=== PATIENT | female | born 1970 | race Caucasian/White ===

== ENCOUNTER 2022-09-24 06:30 | Day surgery (SDC) | payer OTHER, SELFPAY ==
[2022-09-19 16:17] VITALS: BMI 31.0
--- NOTE | 2022-09-21 08:04 | MHC.SHP ---
Pre-Procedural Eval Section A Date of Service: 09/21/22 The patient is an INPATIENT: No Changes since office visit: No Cold of Flu in the past 2 weeks, No New Medical Problems, No Changes in Medication and No Patient answered all questions The History & Physical has been completed within 30 days and I have reviewed it.: Yes Section B Chief Complaint: Age-related nuclear cataract, left eye Allergies: Allergies Allergy/AdvReac Type Severity Reaction Status Date / Time nitrofurantoin Allergy Severe Hives, rash Verified 09/19/22 16:16 [From Macrobid] Plan Diagnosis/Plan: Unchanged I have reviewed the history and physical and performed a pertinent physical examination on my patient. No changes have occurred unless specified. Time Spent With Patient Time: Total time managing care of this patient today ____ minutes.
--- NOTE | 2022-09-21 09:27 | HO.ANESPROP2 ---
Documented by User: Veronica Piper NP 09/21/22 09:28 HPI - Anesthesia Eval Consult details Narrative: 52yo F for Left Cataract Multifocal with IOL Insertion PCP cleared No previous cataract PMFSH Past Medical History Medical History Bilateral cataracts AMBER (generalized anxiety disorder) GERD (gastroesophageal reflux disease) Hearing loss Hypercholesteremia Insomnia PONV (postoperative nausea and vomiting) Renal calculi Surgical History Surgical History History of esophagogastroduodenoscopy (EGD) Hx of appendectomy Hx of colonoscopy Hx of cystoscopy Hx of ovarian cystectomy Social History Social History Household Members: Family Housing: House Are you a primary home health care provider to a significant other at home: No Do you presently have visiting nurse or other home services: No Patient Tobacco Use Status: Former Tobacco user Quit Date: 2013 Tobacco use type: Cigarette Use of substances other than those prescribed or required for medical reasons: No Have you been hit, kicked, punched, or otherwise hurt by someone within the past year? If so, by whom?: No Are you DNR?: No Advance Directives: No Advance Directives Information Provided: Yes Advance Directives on File: No Meds Allergies Allergy/AdvReac Type Severity Reaction Status Date / Time nitrofurantoin Allergy Severe Hives, rash Verified 09/24/22 07:03 [From Macrobid] Home Medications Medication Instructions Recorded Confirmed Last Taken Type fluoxetine 40 mg capsule 40 mg PO DAILY 09/19/22 09/19/22 Unknown History omeprazole 40 mg capsule,delayed 40 mg PO QAM 09/19/22 09/19/22 Unknown History release simvastatin 20 mg tablet 20 mg PO BEDTIME 09/19/22 09/19/22 Unknown History Exam Exam Date and Time: September 21, 2022926 Height,Weight and Vital Signs: Height 5 ft 4.96 in Weight 84.368 kg Assessment and Plan Assessment Anesthesia Assessment: Chart Reviewed Documented by User: Cydney Perry MD 09/24/22 08:58 PMF Past Medical History Medical History Bilateral cataracts AMBER (generalized anxiety disorder) GERD (gastroesophageal reflux disease) Hearing loss Hypercholesteremia Insomnia PONV (postoperative nausea and vomiting) Renal calculi Surgical History Surgical History History of esophagogastroduodenoscopy (EGD) Hx of appendectomy Hx of colonoscopy Hx of cystoscopy Hx of ovarian cystectomy History of Problems with Anesthesia: No Social History Social History Household Members: Family Housing: House Are you a primary home health care provider to a significant other at home: No Do you presently have visiting nurse or other home services: No Patient Tobacco Use Status: Former Tobacco user Quit Date: 2013 Tobacco use type: Cigarette Use of substances other than those prescribed or required for medical reasons: No Have you been hit, kicked, punched, or otherwise hurt by someone within the past year? If so, by whom?: No Are you DNR?: No Advance Directives: No Advance Directives Information Provided: Yes Advance Directives on File: No Meds Allergies Allergy/AdvReac Type Severity Reaction Status Date / Time nitrofurantoin Allergy Severe Hives, rash Verified 09/24/22 07:03 [From Macrobid] Home Medications Medication Instructions Recorded Confirmed Last Taken Type fluoxetine 40 mg capsule 40 mg PO DAILY 09/19/22 09/19/22 Unknown History omeprazole 40 mg capsule,delayed 40 mg PO QAM 09/19/22 09/19/22 Unknown History release simvastatin 20 mg tablet 20 mg PO BEDTIME 09/19/22 09/19/22 Unknown History Exam Airway Mallampati Class: II TM Dist: >3cm Neck ROM: Full Loose/Missing/Broken Teeth: No Heart: RRR Lungs: CTA Assessment and Plan Assessment Anesthesia Assessment: Anesthesia Plan Discussed Final Anesthetic Review History of Problems with Anesthesia: No NPO: Yes ASA Class: II Final Preanesthetic Review: Meds/Allgs Chart Reviewed, Consent Obtained/Reviewed and Anes Risks/Benef Reviewed Patient Risk: Low Procedure Risk: Low Anesthetic Plan Anesthetic Plan: MAC: Disposition: Standard PACU
[2022-09-24 07:36] VITALS: BP 122/85; PULSE 72; RESP 15; TEMP 37.1; O2SAT 98
[2022-09-24] MEDS: Tetracaine HCl/PF 0.5% Oph Sol 4 ML DROPS 1 DROP EYE-LEFT (07:38)
[2022-09-24] MEDS: Cyclopentolate 1 % Ophth Sol 2 ML DRPBTL 1 DROP EYE-LEFT ×3 (07:40→07:53)
[2022-09-24] MEDS: Tropicamide 1 % Ophth Sol 3 ML BTL 1 DROP EYE-LEFT ×3 (07:42→07:54)
[2022-09-24] MEDS: Ketorolac Tromethamine 0.5% Op 5 ML DROPS 1 DROP EYE-LEFT ×3 (07:43→07:55)
[2022-09-24] MEDS: Phenylephrine HCL 2.5% Oph SoL 2 ML BOTTLE 1 DROP EYE-LEFT ×3 (07:45→07:56)
[2022-09-24] MEDS: Lactated Ringers 500 ML 50 ML IV (07:51)
--- NOTE | 2022-09-24 09:58 | HO.PNOPHT ---
Ophthalmology Procedure Procedure Date of Service: 09/24/22 Ophthalmology Viscoelastic: Healon Duet Dual Pack Pro Ophthalmology Lenses: TECNIS ZXR00 (13.5) Procedure Notes: PREOPERATIVE DIAGNOSIS: Decreased visual acuity left eye secondary to cataract POSTOPERATIVE DIAGNOSIS: Same PROCEDURE: Left cataract extraction with multifocal intraocular lens insertion SURGEON: Solitario Ly M.D. ANESTHESIA: Topical/MAC ESTIMATED BLOOD LOSS: None COMPLICATIONS: None After obtaining informed consent, the patient was brought to the operation room suite and placed in the supine position. After adequate sedation per anesthesia, topical drops of Tetracaine were given to the left eye. The eye was then prepped and draped in the usual sterile fashion. The operating room microscope was then positioned over the operative eye and a lid speculum placed. A paracentesis was created. Viscoelastic was then instilled into the anterior chamber. A three plane incision was then created temporally, utilizing a 2.85 mm keratome. Capsulotomy forceps were then utilized to create a circular tear capsulotomy. Hydrodissection and hydrodelineation were carried out until adequate mobilization of the nucleus occurred. Phacoemulsification was then utilized to remove the dense central nucleus followed by removal of the cortical material utilizing the automated aspiration irrigation unit. Viscoelastic was instilled into the posterior capsular bag followed by placement of a multifocal posterior chamber intraocular lens without difficulty. The residual Viscoelastic was then removed utilizing the automated IA machine. The wound was check and found to be watertight. The patient tolerated the procedure well and the lid speculum was removed. Intracameral injection of Vigamox 0.1 mL followed by a subtenon injection of Kenalog-40 0.2 mL were administered. The patient will be seen in the a.m.
[2022-09-24 10:24] VITALS: BP 139/68; PULSE 70; RESP 20; TEMP 36.6; O2SAT 94
== END 2022-09-24 10:37 | disposition home or self-care (01) ==
PROVIDERS: PCP Internal Medicine; Visit Provider Ophthalmology
PROC: (CPT 66984; principal; 2022-09-24 09:50)
DX: H25.12 Age-related nuclear cataract, left eye (principal); H54.7 Unspecified visual loss; H35.3131 Nonexudative age-related macular degeneration, bilateral, early dry stage; H18.413 Arcus senilis, bilateral; E78.00 Pure hypercholesterolemia, unspecified; Z97.3 Presence of spectacles and contact lenses; Z79.899 Other long term (current) drug therapy; Z88.1 Allergy status to other antibiotic agents; Z87.891 Personal history of nicotine dependence
CPT/HCPCS: 66984; J2250; J3010; J3301; V2788

== ENCOUNTER → 2022-10-15 06:31 | Day surgery (SDC) | payer OTHER, SELFPAY ==
[2022-09-19 16:19] VITALS: BMI 30.9
--- NOTE | 2022-10-12 07:50 | MHC.SHP ---
Pre-Procedural Eval Section A Date of Service: 10/12/22 The patient is an INPATIENT: No Changes since office visit: No Cold of Flu in the past 2 weeks, No New Medical Problems, No Changes in Medication and No Patient answered all questions The History & Physical has been completed within 30 days and I have reviewed it.: Yes Section B Chief Complaint: Age-related nuclear cataract, right eye Allergies: Allergies Allergy/AdvReac Type Severity Reaction Status Date / Time nitrofurantoin Allergy Severe Hives, rash Verified 09/24/22 07:03 [From Macrobid] Plan Diagnosis/Plan: Unchanged I have reviewed the history and physical and performed a pertinent physical examination on my patient. No changes have occurred unless specified. Time Spent With Patient Time: Total time managing care of this patient today ____ minutes.
--- NOTE | 2022-10-12 09:36 | P.CONAN_ITS ---
Documented by User: Veronica Piper NP 10/12/22 09:37 HPI - Anesthesia Eval Consult details Narrative: 52yo F for Right Cataract Extraction IOL Insertion PCP cleared Left eye 09/24/22 with TIVA: Fent 50 Midaz 3 PMFSH Past Medical History Medical History Bilateral cataracts AMBER (generalized anxiety disorder) GERD (gastroesophageal reflux disease) Hearing loss Hypercholesteremia Insomnia PONV (postoperative nausea and vomiting) Renal calculi Surgical History Surgical History History of esophagogastroduodenoscopy (EGD) Hx of appendectomy Hx of colonoscopy Hx of cystoscopy Hx of ovarian cystectomy History of Problems with Anesthesia: No Social History Social History Household Members: Family Housing: House Are you a primary acute care physical therapist to a significant other at home: No Do you presently have visiting nurse or other home services: No Patient Tobacco Use Status: Former Tobacco user Quit Date: 2013 Tobacco use type: Cigarette Use of substances other than those prescribed or required for medical reasons: No Have you been hit, kicked, punched, or otherwise hurt by someone within the past year? If so, by whom?: No Are you DNR?: No Advance Directives: No Advance Directives Information Provided: Yes Advance Directives on File: No Recently lost weight without trying: No Nutrition Risks: No Nutritional Risk FDLMP: 2020 Meds Allergies Allergy/AdvReac Type Severity Reaction Status Date / Time nitrofurantoin Allergy Severe Hives, rash Verified 09/24/22 07:03 [From Macrobid] Home Medications Medication Instructions Recorded Confirmed Last Taken Type fluoxetine 40 mg capsule 40 mg PO DAILY 09/19/22 10/15/22 Unknown History omeprazole 40 mg capsule,delayed 40 mg PO QAM 09/19/22 10/15/22 Unknown History release simvastatin 20 mg tablet 20 mg PO BEDTIME 09/19/22 10/15/22 Unknown History Exam Exam Date and Time: October 12, 2022 0936 Height,Weight and Vital Signs: Height 5 ft 5 in Weight 84.368 kg Assessment and Plan Assessment Anesthesia Assessment: Chart Reviewed Final Anesthetic Review History of Problems with Anesthesia: No Documented by User: Cydney Perry MD 10/15/22 08:35 PMFSH Past Medical History Medical History Bilateral cataracts AMBER (generalized anxiety disorder) GERD (gastroesophageal reflux disease) Hearing loss Hypercholesteremia Insomnia PONV (postoperative nausea and vomiting) Renal calculi Surgical History Surgical History History of esophagogastroduodenoscopy (EGD) Hx of appendectomy Hx of colonoscopy Hx of cystoscopy Hx of ovarian cystectomy Social History Social History Household Members: Family Housing: House Are you a primary acute care physical therapist to a significant other at home: No Do you presently have visiting nurse or other home services: No Patient Tobacco Use Status: Former Tobacco user Quit Date: 2013 Tobacco use type: Cigarette Use of substances other than those prescribed or required for medical reasons: No Have you been hit, kicked, punched, or otherwise hurt by someone within the past year? If so, by whom?: No Are you DNR?: No Advance Directives: No Advance Directives Information Provided: Yes Advance Directives on File: No Recently lost weight without trying: No Nutrition Risks: No Nutritional Risk FDLMP: 2020 Meds Allergies Allergy/AdvReac Type Severity Reaction Status Date / Time nitrofurantoin Allergy Severe Hives, rash Verified 09/24/22 07:03 [From Macrobid] Home Medications Medication Instructions Recorded Confirmed Last Taken Type fluoxetine 40 mg capsule 40 mg PO DAILY 09/19/22 10/15/22 Unknown History omeprazole 40 mg capsule,delayed 40 mg PO QAM 09/19/22 10/15/22 Unknown History release simvastatin 20 mg tablet 20 mg PO BEDTIME 09/19/22 10/15/22 Unknown History Exam Airway Mallampati Class: III TM Dist: >3cm Neck ROM: Full Loose/Missing/Broken Teeth: No Heart: RRR Lungs: CTA Assessment and Plan Assessment Anesthesia Assessment: Anesthesia Plan Discussed Final Anesthetic Review NPO: Yes ASA Class: II Final Preanesthetic Review: Meds/Allgs Chart Reviewed, Consent Obtained/Reviewed and Anes Risks/Benef Reviewed Patient Risk: Low Procedure Risk: Low Anesthetic Plan Anesthetic Plan: MAC: Disposition: Standard PACU
[2022-10-15 07:06] VITALS: BP 114/43; PULSE 64; RESP 18; TEMP 36.7; O2SAT 96
--- NOTE | 2022-10-15 08:59 | HO.PNOPHT ---
Ophthalmology Procedure Procedure Date of Service: 10/15/22 Ophthalmology Viscoelastic: Healon Duet Dual Pack Pro Ophthalmology Lenses: TECNIS ZXR00 (13) Procedure Notes: PREOPERATIVE DIAGNOSIS: Decreased visual acuity right eye secondary to cataract POSTOPERATIVE DIAGNOSIS: Same PROCEDURE: Right cataract extraction with multifocal intraocular lens insertion SURGEON: Solitario Ly M.D. ANESTHESIA: Topical/MAC ESTIMATED BLOOD LOSS: None COMPLICATIONS: None After obtaining informed consent, the patient was brought to the operating room suite and placed in the supine position. After adequate sedation per anesthesia, topical drops of Tetracaine were given to the right eye. The eye was then prepped and draped in the usual sterile fashion. The operating room microscope was then positioned over the operative eye and a lid speculum placed. A paracentesis was created. Viscoelastic was then instilled into the anterior chamber. A three plane incision was then created temporally, utilizing a 2.85 mm keratome. Capsulotomy forceps were then utilized to create a circular tear capsulotomy. Hydrodissection and hydrodelineation were carried out until adequate mobilization of the nucleus occurred. Phacoemulsification was then utilized to remove the dense central nucleus followed by removal of the cortical material utilizing the automated aspiration irrigation unit. Viscoelastic was instilled into the posterior capsular bag followed by placement of a multifocal posterior chamber intraocular lens without difficulty. The residual Viscoelastic was then removed utilizing the automated IA machine. The wound was checked and found to be watertight. The patient tolerated the procedure well and the lid speculum was removed. Intracameral injection of Vigamox 0.1 mL followed by a subtenon injection of Kenalog-40 0.2 mL were administered. The patient will be seen in the a.m.
== END | disposition home or self-care (01) ==
PROVIDERS: PCP Internal Medicine; Visit Provider Ophthalmology
PROC: (CPT 66984; principal; 2022-10-15 08:50)
DX: H25.11 Age-related nuclear cataract, right eye (principal); H54.7 Unspecified visual loss; E78.5 Hyperlipidemia, unspecified; Z87.891 Personal history of nicotine dependence; Z79.899 Other long term (current) drug therapy
CPT/HCPCS: 66984; J2250; J3010; J3301